=== PATIENT | female | born 1985 | race Caucasian/White ===

== ENCOUNTER 2017-07-18 14:10 | Emergency (ER) | payer BC, OTHER ==
[2017-07-18 14:21] VITALS: BP 128/89
[2017-07-18] MEDS ORDERED: Sodium Chloride 0.9% 1,000 ML IV ONE (14:29)
[2017-07-18 15:27] LABS: ANION GAP 11.3; CHLORIDE,CL 103 mmol/L (101-111); SODIUM,NA 136 mmol/L (135-145)
--- NOTE | 2017-07-18 16:07 | EDM.PDOC ---
Scribed by Michelle Bowen 07/18/17 1601 for Ivan Martinez PA ED HPI GENERAL MEDICAL PROBLEM - General Chief Complaint: Cardiovascular Problem Stated Complaint: [id number] lt headed dizzy heart racing Time Seen by Provider: 07/18/17 15:15 Source of Information: Reports: Patient, RN, RN Notes Reviewed History Limitations: Reports: No Limitations - History of Present Illness INITIAL COMMENTS - FREE TEXT/NARRATIVE: Patient had heart palpitations and heart racing. This started last night. She feels dizzy. Headache started yesterday. She took an Aleve D today. Patient did not eat dinner last night. She had an orange and doughnut this a.m. Intermittent lower abdominal cramping. 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) - Related Data Allergies Allergy/AdvReac Type Severity Reaction Status Date / Time amoxicillin Allergy Hives Verified 07/18/17 14:18 Home Meds: Home Meds PNV95/Ferrous Fumarate/FA [ Multivitamins] 1 tab PO DAILY 04/17/14 [ History] Past Medical History - Past Health History Medical/Surgical History: Denies Medical/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 ED EXAM, GENERAL - Physical Exam Exam: See Below Exam Limited By: No Limitations General Appearance: Alert, WD/WN, No Apparent Distress Eye Exam: Bilateral Eye: Normal Inspection Ears: Normal External Exam, Normal Canal, Hearing Grossly Normal, Normal TMs Nose: Normal Inspection, Normal Mucosa, No Blood Throat/Mouth: Normal Inspection, Normal Lips, Normal Teeth, Normal Gums, Normal Oropharynx, Normal Voice, No Airway Compromise Head: Atraumatic, Normocephalic Neck: Normal Inspection, Supple, Non-Tender, Full Range of Motion Respiratory/Chest: No Respiratory Distress, Lungs Clear, Normal Breath Sounds, No Accessory Muscle Use, Chest Non-Tender Cardiovascular: Normal Peripheral Pulses, Regular Rate, Rhythm, No Edema, No Gallop, No JVD, No Murmur, No Rub GI/Abdominal: Normal Bowel Sounds, Soft, Non-Tender, No Organomegaly, No Distention, No Abnormal Bruit, No Mass (Female) Exam: Deferred Rectal (Female) Exam: Deferred Back Exam: Normal Inspection, Full Range of Motion, NT Extremities: Normal Inspection, Normal Range of Motion, Non-Tender, Normal Capillary Refill, No Pedal Edema Neurological: Alert, Oriented, CN II-XII Intact, Normal Cognition, Normal Gait, Normal Reflexes, No Motor/Sensory Deficits Psychiatric: Anxious Skin Exam: Warm, Dry, Intact, Normal Color, No Rash Lymphatic: No Adenopathy Course - Vital Signs Last Recorded V/S: Last Vital Signs Temp 37.6 C 07/18/17 14:18 Pulse 100 07/18/17 14:18 Resp 20 07/18/17 14:18 BP 128/89 07/18/17 14:18 Pulse Ox 98 07/18/17 14:18 - Orders/Labs/Meds Orders: Active Orders 24 hr Category Date Time Status EKG Documentation Completion [RC] URGENT Care 07/18/17 14:29 Active Labs: Laboratory Tests 07/18/17 07/18/17 07/18/17 Range/Units 14:35 14:35 14:35 WBC (5.0-10.0) 10^3/uL RBC (4.2-5.4) 10^6/uL Hgb (12.0-16.0) g/dL Hct (37.0-47.0) % MCV (80-100) fL MCH (27.0-34.0) pg MCHC (33.0-35.0) g/dL Plt Count (150-450) 10^3/uL Neut % (Auto) (42.2-75.2) % Lymph % (Auto) (20.5-50.1) % [place] % (Auto) (2-8) % Eos % (Auto) (1.0-3.0) % Baso % (Auto) (0.0-1.0) % Sodium (135-145) mmol/L Potassium (3.6-5.0) mmol/L Chloride (101-111) mmol/L Carbon Dioxide (21.0-31.0) mmol/L Anion Gap BUN (7-18) mg/dL Creatinine (0.6-1.3) mg/dL Est Cr Clr Drug Dosing mL/min Estimated GFR (MDRD) BUN/Creatinine Ratio Glucose (74-105) mg/dL Calcium (8.4-10.2) mg/dl Total Bilirubin (0.2-1.0) mg/dL AST (10-42) IU/L ALT (10-60) IU/L Alkaline Phosphatase (42-121) IU/L Troponin I (0.00-0.02) ng/ml Total Protein (6.7-8.2) g/dl Albumin (3.2-5.5) g/dl Globulin Albumin/Globulin Ratio Urine Color Yellow (YELLOW) Urine Appearance Clear (CLEAR) Urine pH 7.0 (5.0-9.0) Ur Specific [place] 1.010 (1.005-1.030) Urine Protein Negative (NEGATIVE) Urine Glucose (UA) Negative (NEGATIVE) Urine Ketones Negative (NEGATIVE) Urine Occult Blood Negative (NEGATIVE) Urine Nitrite Negative (NEGATIVE) Urine Bilirubin Negative (NEGATIVE) Urine Urobilinogen 0.2 (0.2-1.0) mg/dL Ur Leukocyte Esterase Negative (NEGATIVE) Urine RBC 0-5 /HPF Urine WBC 0-5 (0-5/HPF) /HPF Ur Epithelial Cells Rare /HPF Urine Bacteria Rare (0-FEW/HPF) /HPF Urine HCG, Qual Negative Urine Opiates Screen Negative (NEGATIVE) Ur Oxycodone Screen Negative (NEGATIVE) Urine Methadone Screen Negative (NEGATIVE) Ur Barbiturates Screen Negative (NEGATIVE) U Tricyclic Antidepress Negative (NEGATIVE) Ur Phencyclidine Scrn Negative (NEGATIVE) Ur Amphetamine Screen Negative (NEGATIVE) U Methamphetamines Scrn Negative (NEGATIVE) Urine MDMA Screen Negative (NEGATIVE) U Benzodiazepines Scrn Negative (NEGATIVE) Urine Cocaine Screen Negative (NEGATIVE) U Marijuana (THC) Screen Negative (NEGATIVE) 07/18/17 07/18/17 Range/Units 14:55 14:55 WBC 10.7 H (5.0-10.0) 10^3/uL RBC 4.83 (4.2-5.4) 10^6/uL Hgb 13.3 D (12.0-16.0) g/dL Hct 39.5 (37.0-47.0) % MCV 81.8 D (80-100) fL MCH 27.5 (27.0-34.0) pg MCHC 33.7 (33.0-35.0) g/dL Plt Count 256 (150-450) 10^3/uL Neut % (Auto) 75.8 H (42.2-75.2) % Lymph % (Auto) 15.1 L (20.5-50.1) % [place] % (Auto) 7.4 (2-8) % Eos % (Auto) 1.5 (1.0-3.0) % Baso % (Auto) 0.2 (0.0-1.0) % Sodium 136 (135-145) mmol/L Potassium 3.3 L (3.6-5.0) mmol/L Chloride 103 (101-111) mmol/L Carbon Dioxide 25.0 (21.0-31.0) mmol/L Anion Gap 11.3 BUN 7 (7-18) mg/dL Creatinine 0.6 (0.6-1.3) mg/dL Est Cr Clr Drug Dosing 129.51 mL/min Estimated GFR (MDRD) > 60 BUN/Creatinine Ratio 11.66 Glucose 110 H (74-105) mg/dL Calcium 9.0 (8.4-10.2) mg/dl Total Bilirubin 1.4 H (0.2-1.0) mg/dL AST 23 (10-42) IU/L ALT 17 (10-60) IU/L Alkaline Phosphatase 101 (42-121) IU/L Troponin I < 0.02 (0.00-0.02) ng/ml Total Protein 7.0 (6.7-8.2) g/dl Albumin 3.8 (3.2-5.5) g/dl Globulin 3.2 Albumin/Globulin Ratio 1.19 Urine Color (YELLOW) Urine Appearance (CLEAR) Urine pH (5.0-9.0) Ur Specific [place] (1.005-1.030) Urine Protein (NEGATIVE) Urine Glucose (UA) (NEGATIVE) Urine Ketones (NEGATIVE) Urine Occult Blood (NEGATIVE) Urine Nitrite (NEGATIVE) Urine Bilirubin (NEGATIVE) Urine Urobilinogen (0.2-1.0) mg/dL Ur Leukocyte Esterase (NEGATIVE) Urine RBC /HPF Urine WBC (0-5/HPF) /HPF Ur Epithelial Cells /HPF Urine Bacteria (0-FEW/HPF) /HPF Urine HCG, Qual Urine Opiates Screen (NEGATIVE) Ur Oxycodone Screen (NEGATIVE) Urine Methadone Screen (NEGATIVE) Ur Barbiturates Screen (NEGATIVE) U Tricyclic Antidepress (NEGATIVE) Ur Phencyclidine Scrn (NEGATIVE) Ur Amphetamine Screen (NEGATIVE) U Methamphetamines Scrn (NEGATIVE) Urine MDMA Screen (NEGATIVE) U Benzodiazepines Scrn (NEGATIVE) Urine Cocaine Screen (NEGATIVE) U Marijuana (THC) Screen (NEGATIVE) Meds: Medications Discontinued Medications Generic Name Dose Route Start Last Admin Trade Name Freq PRN Reason Stop Dose Admin Sodium Chloride 1,000 mls @ 999 mls/hr 07/18/17 14:29 07/18/17 14:55 Normal Saline IV 07/18/17 15:29 999 mls/hr .BOLUS ONE Administration Departure - Departure Time of Disposition: 16:04 Disposition: Home, Self-Care 01 Condition: Fair Clinical Impression: Dehydration Forms: ED Department Discharge Care Plan Goals: The patient was advised of the examination, lab and EKG results during the visit. The patient was encouraged to increase her oral fluid intake and eat healthy meals. If the patient has any additional symptoms or concerns, the patient should follow-up with her primary care facility or return to the emergency department. - My Orders Last 24 Hours: My Active Orders 07/18/17 14:29 EKG Documentation Completion [RC] URGENT - Assessment/Plan Last 24 Hours: My Active Orders 07/18/17 14:29 EKG Documentation Completion [RC] URGENT I have read and agree with the documentation that has been completed regarding this visit. By signing this record, I attest that the documentation was completed in my physical presence and is an accurate record of the encounter.
--- NOTE | 2017-07-19 13:49 | EKG ---
07/18/2017- YOLIE BUSTOS - EKG per my reading shows sinus rhythm at a rate of 93. [facility] /[id number]
== END 2017-07-18 16:09 | disposition home or self-care (01) ==
LOC: DL.ED 14:10
DX: E86.0 Dehydration (principal); Z88.1 Allergy status to other antibiotic agents
CPT/HCPCS: 36415; 80053; 80305; 81001; 81025; 84484; 85025; 93005; 96360; 99285; J7030

== ENCOUNTER 2018-10-05 12:22 | Emergency (ER) | payer OTHER ==
[2018-10-05 12:30] VITALS: BP 148/95; PULSE 68
[2018-10-05] MEDS ORDERED: Ketorolac 30 MG/ML SDV IM ONE (12:43)
--- NOTE | 2018-10-05 12:53 | EDM.PDOC ---
ED HPI GENERAL MEDICAL PROBLEM - General Chief Complaint: Neck Problem Stated Complaint: LEFT SIDE OF BODY NUMB,TIGHT NECK Time Seen by Provider: 10/05/18 12:35 Source of Information: Reports: Patient, RN, RN Notes Reviewed History Limitations: Reports: No Limitations - History of Present Illness INITIAL COMMENTS - FREE TEXT/NARRATIVE: Pt to ER with c/o left sided neck pain with numbness and tingling down the left arm, tingling in the pointer finger of the left hand. Patient states she has some dull ache down the left leg and tingling into the toes. She states she has not injured her neck, possibly slept wrong. She states she has had a sinus infection for the past week-10 days. She admits to some blurred vision in the left eye at times, not right now. Denies fever or chills, N/V/D. 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 Musculoskeletal History: Reports: None Neurological History: Reports: None Psychiatric History: Reports: None Endocrine/Metabolic History: Reports: None Hematologic History: Reports: None Immunologic History: Reports: None Oncologic (Cancer) History: Reports: None Dermatologic History: Reports: None - Infectious Disease History Infectious Disease History: Reports: None - Past Surgical History Head Surgeries/Procedures: Reports: None Social & Family History - Family History Family Medical History: Noncontributory - Tobacco Use Smoking Status *Q: Never Smoker Second Hand Smoke Exposure: No - Caffeine Use Caffeine Use: Reports: Coffee - Recreational Drug Use Recreational Drug Use: No - Living Situation & Occupation Living situation: Reports: Occupation: Employed ED ROS GENERAL - Review of Systems Review Of Systems: ROS reveals no pertinent complaints other than HPI. ED EXAM, UPPER BACK/NECK PAIN - Physical Exam Exam: See Below Exam Limited By: No Limitations General Appearance: Alert, WD/WN, Mild Distress Eye Exam: Bilateral Eye: EOMI, Normal Inspection Ears Exam: Normal External Exam, Hearing Grossly Normal Nose Exam: Normal Inspection Throat/Mouth Exam: Normal Inspection, Normal Lips, Normal Teeth, Normal Gums, Normal Oropharynx, Normal Voice, No Airway Compromise Head Exam: Atraumatic, Normocephalic Neck Exam: Normal Alignment, Normal Inspection, Limited Range of Motion, Muscle Spasm, Painful Range of Motion, Tender Lateral Nexus Criteria: No: Posterior, Midline Cervical Tenderness, Evidence of Intoxication, Altered Level of Consciousness, Focal Neurological Deficit, Painful Distraction Injuries Cardiovascular/Respiratory: Regular Rate, Rhythm, No M/R/G, Normal Peripheral Pulses, No JVD, Normal Breath Sounds, No Respiratory Distress GI/Abdominal: Normal Bowel Sounds, Soft, Non-Tender (Female) Exam: Deferred Rectal (Female) Exam: Deferred Back Exam: Normal Inspection, Full Range of Motion, NT Extremities: Normal Inspection, Normal Range of Motion, Non-Tender, No Pedal Edema, Normal Capillary Refill Neurologic: checkroom chief II-XII nml As Tested, No Motor/Sensory Deficits, Alert, Normal Mood/Affect, Oriented x 3 Psychiatric: Normal Affect, Normal Mood Skin Exam: Normal Color, Warm/Dry Lymphatic: No Adenopathy Course - Vital Signs Last Recorded V/S: Last Vital Signs Temp 98.4 F 10/05/18 12:28 Pulse 68 10/05/18 12:28 Resp 16 10/05/18 12:28 BP 148/95 H 10/05/18 12:28 Pulse Ox 100 10/05/18 12:28 - Orders/Labs/Meds Meds: Medications Discontinued Medications Generic Name Dose Route Start Last Admin Trade Name Rusty PRN Reason Stop Dose Admin Ketorolac Tromethamine 30 mg 10/05/18 12:43 10/05/18 12:49 Toradol IM 10/05/18 12:44 30 mg ONETIME ONE Administration Orphenadrine Citrate 60 mg 10/05/18 12:45 Norflex IM Q12H SAMANTHA Orphenadrine Citrate 60 mg 10/05/18 12:45 10/05/18 12:49 Norflex IM 10/05/18 12:46 60 mg ONETIME ONE Administration - Re-Assessments/Exams Free Text/Narrative Re-Assessment/Exam: 10/05/18 13:24 Patient states vision is improved. Patient states she feels some improvement after medications given. NIH score = 0 Departure - Departure Time of Disposition: 13:09 Disposition: Home, Self-Care 01 Condition: Fair Clinical Impression: Cervical radiculopathy Sinusitis Qualifiers: Sinusitis location: unspecified location Chronicity: acute Recurrence: not specified as recurrent Qualified Code(s): J01.90 - Acute sinusitis, unspecified - Discharge Information *PRESCRIPTION DRUG MONITORING PROGRAM REVIEWED*: No *COPY OF PRESCRIPTION DRUG MONITORING REPORT IN PATIENT SYD: No Instructions: Cervical Sprain, [id number], Cervical Radiculopathy, Easy-to- Read, Sinusitis, Adult, [id number] Forms: ED Department Discharge Additional Instructions: RX: Prednisone, Flexeril Heat to the neck as tolerated Massage Call for Physical Therapy workup May use Tylenol and/or Ibuprofen as directed for pain
== END 2018-10-05 13:13 | disposition home or self-care (01) ==
LOC: DL.ED 12:22
DX: J01.90 Acute sinusitis, unspecified (principal); M54.12 Radiculopathy, cervical region; Z88.1 Allergy status to other antibiotic agents
CPT/HCPCS: 96372; 99283; J1885; J2360

== ENCOUNTER → 2018-10-29 | Outpatient (CLI) | payer OTHER ==
[2018-10-29 11:13] LABS: ANION GAP 12.9; CHLORIDE,CL 104 mmol/L (101-111); SODIUM,NA 136 mmol/L (135-145)
== END ==
LOC: DL.CLIN 10:00
PROVIDERS: ATTEND Nurse Practitioner
DX: R11.0 Nausea (principal); F41.9 Anxiety disorder, unspecified
CPT/HCPCS: 80053; 84443; 85025

== ENCOUNTER 2022-08-18 11:31 | Inpatient (IN) | payer OTHER ==
[2022-08-18] MEDS ORDERED: Lactated Ringers 1,000 ML IV ONE (14:12)
[2022-08-18] MEDS ORDERED: Methylergonovine 0.2 MG/1 ML Amp IM PRN (14:12)
[2022-08-18] MEDS ORDERED: Sodium Chloride 0.9% 10 ML Syringe FLUSH PRN (14:12)
[2022-08-18] MEDS ORDERED: Lidocaine 1% 30 ML SDV INJECT PRN (14:12)
[2022-08-18] MEDS ORDERED: Ondansetron 4 MG/2 ML SDV IVPUSH PRN (14:12)
[2022-08-18] MEDS ORDERED: Tranexamic Acid 1,000 MG in Sodium Chloride 0.9% 100 ML IV PRN (14:12)
[2022-08-18] MEDS ORDERED: Carboprost Tromethamine 250 MCG/1 ML Amp IM PRN (14:12)
[2022-08-18] MEDS ORDERED: Misoprostol 400 MCG (4 X 100 MCG TAB) RECTAL PRN (14:12)
[2022-08-18] MEDS ORDERED: Lactated Ringers 1,000 ML IV SCH (14:15)
[2022-08-18] MEDS ORDERED: Oxytocin/Normal Saline 30 UNIT/500 ML BAG IV SCH ×2 (14:15→14:30)
[2022-08-18] MEDS ORDERED: Dexmedetomidine 200 MCG/2 ML SDV IV ONE (16:18)
[2022-08-18] MEDS ORDERED: Sodium Bicarbonate 4.2% 2.5 MEQ/5 ML SDV IV ONE (16:18)
[2022-08-18] MEDS ORDERED: Morphine PF 10 MG/10 ML SDV IV ONE (16:18)
[2022-08-18] MEDS ORDERED: EPINEPHrine 1 MG/ML SDV IV ONE (16:18)
[2022-08-18] MEDS ORDERED: Sodium Chloride 0.9% 20 ML SDV IV ONE (16:18)
[2022-08-18] MEDS ORDERED: Dexmedetomidine 200 MCG/2 ML SDV ONE (16:55)
[2022-08-18] MEDS ORDERED: Sodium Bicarbonate 4.2% 2.5 MEQ/5 ML SDV ONE (16:55)
[2022-08-18] MEDS ORDERED: ePHEDrine 50 MG/ML SDV IVPUSH PRN (17:49)
[2022-08-18] MEDS ORDERED: Promethazine 25 MG/ML SDV IM PRN (17:49)
[2022-08-18] MEDS ORDERED: Naloxone 2 MG/2 ML Syringe IVPUSH PRN (17:50)
[2022-08-18] MEDS ORDERED: Benzocaine/Menthol 20%-0.5% Spray 78 GM Cannister TOP PRN (18:19)
[2022-08-18] MEDS ORDERED: Witch Hazel Medicated Pads 100/Jar TOP PRN (18:19)
[2022-08-18] MEDS ORDERED: Hydrocortisone 2.5% Crm 30 GM Tube TOP PRN (18:19)
[2022-08-18] MEDS ORDERED: Docusate Sodium 100 MG Cap PO PRN (18:19)
[2022-08-18] MEDS ORDERED: Ibuprofen 800 MG Tab PO PRN (18:19)
[2022-08-18] MEDS ORDERED: Simethicone 80 MG Tab.Chew PO PRN (18:19)
[2022-08-18] MEDS ORDERED: Acetaminophen 325 MG Tab PO PRN (18:19)
[2022-08-19 08:10] VITALS: BP 123/74; PULSE 62
[2022-08-19] MEDS ORDERED: Prenatal Multivitamin with Calcium/Folic Acid/Iron Tab PO SCH (09:00)
== END 2022-08-19 20:08 | disposition home or self-care (01) | DRG 807 ==
LOC: DL.OBCHECK 11:31 → OBSVTOIN 14:21 → DL.OB 14:21 → INTOOBSV 14:21 → DL.OB 18:00 → OBSVTOIN 18:00
PROVIDERS: ADMIT Family Medicine; ATTEND Family Medicine
PROC: 10E0XZZ Delivery of Products of Conception, External Approach (ICD-10-PCS; principal; 2022-08-18)
PROC: 10907ZC Drainage of Amniotic Fluid, Therapeutic from Products of Conception, Via Natural or Artificial Opening (ICD-10-PCS; 2022-08-18)
PROC: 0HQ9XZZ Repair Perineum Skin, External Approach (ICD-10-PCS; 2022-08-18)
DX: O70.0 First degree perineal laceration during delivery (principal); Z37.0 Single live birth; Z3A.38 38 weeks gestation of pregnancy
CPT/HCPCS: 01967; 36415; 59409; 85027; A9270-GY; J0171; J2270; J2405; J2590; J3490; J7120